=== PATIENT | female | born 1985 | race Caucasian/White ===

== ENCOUNTER 2020-04-15 13:41 | Outpatient (REF) | payer OTHER, SELFPAY ==
--- NOTE | 2020-04-15 13:49 | MM_ITS ---
EXAMINATION: MM DIAGNOSTIC DIGITAL BREAST TOMOSYNTHESIS, BILATERAL US DIAGNOSTIC ULTRASOUND BREAST, LEFT CLINICAL INFORMATION: Palpable fullness anterior left breast. Age 34. Prior reduction mammoplasty July 2018. No known family history of breast cancer. The lifetime risk of breast cancer based on the Tyrer-Cuzick Model is 13%. COMPARISON: Baseline mammography 01/26/2019, ultrasound left breast 01/26/2019. TECHNIQUE: Digital breast tomosynthesis is performed in both the craniocaudal and mediolateral oblique views along with computer-aided detection (CAD). Synthesized 2D images are generated from the tomosynthesis. Additional magnification left CC and magnification left LM views are obtained. Ultrasound left breast is targeted to the 8:00 through 2:00 position. Grayscale imaging and color Doppler are performed without and with harmonics. FINDINGS: There are scattered areas of fibroglandular density (ACR BI-RADS breast composition Category b). Parenchymal pattern is similar to the initial baseline exam. Again, there is some minor scarring consistent with the reduction mammoplasty. Right breast is unchanged. The anterior central 11:00 to 12:00 breast has oval areas of fat necrosis with grouped round foci again seen with internal fatty tissue composition. There is no interval developing density or architectural abnormality. There are new scattered calcifications in this area likely related to the fat necrosis. Calcifications will be reassessed with diagnostic mammography in 6 months to include magnification views. Ultrasound left breast shows oval heterogeneous echogenicity in the region of fat necrosis similar to prior imaging. No interval suspicious change. No edema tracking in soft tissue planes. Results are discussed with the patient at time of visit. The post reduction changes are similar to prior exam. The left breast calcifications are probably benign, sequela from prior surgery. MM/MM tomosynthesis diagnostic BI IMPRESSION: 1. No interval mass or architectural abnormality. 2. Probable benign calcifications in area of fat necrosis anterior left breast. 3. Unremarkable targeted left breast ultrasound. ASSESSMENT: BI-RADS 3: Probably Benign RECOMMENDATION: Diagnostic left mammography in 6 months. This patient's information was entered into a reminder system with a target due date for their next mammogram.
== END 2020-04-15 13:42 | disposition home or self-care (01) ==
LOC: HO.MAMMO 13:41
PROVIDERS: PCP Internal Medicine; Visit Provider Nurse Practitioner Women's Health
DX: N63.22 Unspecified lump in the left breast, upper inner quadrant (principal)
CPT/HCPCS: 76642; 77062; 77066

== ENCOUNTER 2020-10-13 08:49 | Outpatient (REF) | payer OTHER, SELFPAY ==
--- NOTE | ~2020-10-13 | MM_ITS ---
EXAMINATION: MM DIAGNOSTIC DIGITAL BREAST TOMOSYNTHESIS, LEFT CLINICAL INFORMATION: Short interval six-month follow-up probable benign calcifications in area of grouped fat necrosis. Prior reduction mammoplasty July 2018. No known family history breast cancer. TC score 13%. COMPARISON: Mammography: 04/15/2020 (diagnostic, BI-RADS 3), 01/26/2019 (baseline). TECHNIQUE: Digital breast tomosynthesis is performed in both the craniocaudal and mediolateral oblique views along with computer-aided detection (CAD). Synthesized 2D images are generated from the tomosynthesis. Additional magnification CC and magnification ML views are provided. FINDINGS: There are scattered areas of fibroglandular density (ACR BI-RADS breast composition Category b). There are postsurgical changes with scarring and grouped fat necrosis/oil cysts anterior breast consistent with the reduction mammoplasty. There are calcifications in the area of fat necrosis and oil cysts, slightly increased in number and slightly coarser. Calcifications will be reassessed again at time of annual bilateral exam, due in 6 months. The remainder of the left breast is unremarkable. Results are provided to the patient by the technologist. MM/MM tomosynthesis diagnostic LT IMPRESSION: Postsurgical changes with probable benign calcifications associated with fat necrosis and oil cysts. No suspicious change from prior diagnostic exam. ASSESSMENT: BI-RADS 3: Probably Benign RECOMMENDATION: Diagnostic mammography at time of annual bilateral exam, due in 6 months. This patient's information was entered into a reminder system with a target due date for their next mammogram.
== END 2020-10-13 08:50 | disposition home or self-care (01) ==
LOC: HO.MAMMO 08:49
PROVIDERS: PCP Internal Medicine; Visit Provider Nurse Practitioner Women's Health
DX: R92.1 Mammographic calcification found on diagnostic imaging of breast (principal); N64.1 Fat necrosis of breast
CPT/HCPCS: 77061; 77065

== ENCOUNTER 2020-11-16 18:40 | Emergency (ER) | payer OTHER, SELFPAY ==
[2020-11-16 18:44] VITALS: BP 152/84; PULSE 87; RESP 18; TEMP 36.8; O2SAT 98; BMI 43.2
--- NOTE | 2020-11-16 18:54 | ED_ITS ---
HPI - Animal Bite General Chief Complaint: Animal Bite Stated Complaint: dog bite Time Seen by Provider: 11/16/20 18:54 Source: patient Mode of arrival: ambulatory Limitations: no limitations History of Present Illness HPI narrative: 35-year-old female here with dog bite to the face. The patient tells me that she startled her 90 lb dog and he bit her in the face. His rabies vaccines are up-to-date. Related Data Allergies Allergy/AdvReac Type Severity Reaction Status Date / Time No Known Allergies Allergy Unverified 02/21/20 19:30 [No Known Allergies*] Review of Systems Review of Systems: Yes all other systems are reviewed and are negative Constitutional: Constitutional: Reports no additional constitutional complaints and Denies fever(s) Eyes: Eyes: Reports no additional eye complaints and Denies change in vision ENT: Reports system reviewed and no additional complaints, except as documented, Reports lip swelling, Denies epistaxis, Denies nasal congestion, Denies nasal discharge and Denies neck pain Cardiovascular: Cardiovascular: Reports no additional cardiovascular compl aints, Denies chest pain and Denies dyspnea Respiratory: Respiratory: Reports no additional respiratory complaints, Denies cough and Denies dyspnea Gastrointestinal: Gastrointestinal: Reports no additional gastrointestinal complaints and Denies abdominal pain Genitourinary: Genitourinary: Reports no additional female genitourinary complaints Musculoskeletal: Musculoskeletal: Reports no additional musculoskeletal complaints, Denies back pain and Denies neck pain Integumentary/Breasts: Skin/Breast: Reports system reviewed and no additional complaints, except as docu and Denies rash Comments: Dog bite- laceration Neurologic: Reports system reviewed and no additional complaints, except as documented Allergic/Immunologic: Allergic/Immunologic: Reports lip swelling PMFSH Past Medical History Attestation statement: The following information was validated with the patient. Source: old records reviewed and nursing notes reviewed Medical History No known health problems Surgical History Hx of cholecystectomy Social History Social History Advance Directives: No Advance Directives Information Provided: No Patient : No Physical Exam Vital Signs: Vital Signs: Last Vital Signs Temp 98.2 F 11/16/20 18:44 Pulse 87 11/16/20 18:44 Resp 18 11/16/20 18:44 BP 152/84 H 11/16/20 18:44 Pulse Ox 98 11/16/20 18:44 Body Mass Index 43.2 Const: General: cooperative, healthy appearing, comfortable and no acute distress Orientation/consciousness: patient oriented x3 Limitations: no limitations HENMT: Other: Head: Yes normal to inspection Ears: hearing grossly normal bilaterally General nose exam: Normal external nose present Face and sinus: Yes normal facial exam Mouth: Normal oral and palatal mucosa present Throat: Yes posterior oropharynx normal Eyes: General: appearance normal, both eyes and all related structures Neck: Neck: Yes normal visual inspection Chest: Chest palpation & inspection: normal inspection of the chest Resp: Effort & Inspection: normal respiratory effort Cardio: Peripheral pulses: Peripheral pulses 2+ throughout Back/Spine/Pelvis: Thoracic/Lumbar Spine: thoracic and lumbar spine normal to inspection Skin: General skin exam: no rashes or lesions noted Neuro: General: patient oriented x3 and moves all extremities Gait exam (Neuro): Normal gait present Extrem: General: Yes normal to inspection Course Course Course Narrative: Extensive facial lacerations after being bitten by her dog on the upper lips through and through crossing the [place]. Will need plastics repair. Will transfer to tertiary care center for further evaluation.Patient agreeable to this. Verbal consent for transfer. Called and spoke to [facility] ER Dr Marquez who accepted patient. Patient refused ambulance transfer and will drive by car. Her dad is going to bring her. MDM - Animal Bite Medical Records Attestation: I reviewed the patient's medical records. Lab Data Attestation: I reviewed the patient's lab results. Discharge Plan Discharge Clinical Impression: Bite by animal, Dog bite, Complex laceration of face Patient Disposition: [facility] Transfer Details: [facility] Instructions: Animal Bite (ED), Facial Laceration (ED) Additional Instructions: Go direct to [facility] ER
== END 2020-11-16 19:10 | disposition short-term general hospital (02) ==
PROVIDERS: Emergency Provider Internal Medicine; PCP Internal Medicine
DX: S01.551A Open bite of lip, initial encounter (principal); W54.0XXA Bitten by dog, initial encounter; Y93.9 Activity, unspecified; Y92.9 Unspecified place or not applicable; Y99.9 Unspecified external cause status
CPT/HCPCS: 99283; 99285

== ENCOUNTER 2021-04-15 12:20 | Outpatient (REF) | payer OTHER, SELFPAY ==
--- NOTE | ~2021-04-15 | MM_ITS ---
EXAMINATION: MM DIAGNOSTIC DIGITAL BREAST TOMOSYNTHESIS, BILATERAL CLINICAL INFORMATION: Status post breast reduction surgery with left-sided calcifications. The lifetime risk of breast cancer based on the Tyrer-Cuzick Model is 13.3%. COMPARISON: Mammography: 10/13/2020 and 04/15/2020. TECHNIQUE: Digital breast tomosynthesis is performed in both the craniocaudal and mediolateral oblique views along with computer-aided detection (CAD). Synthesized 2D images are generated from the tomosynthesis. Additional spot magnification views of the left breast in craniocaudal and 90 degree mediolateral views performed as well as spot compression view of the right breast in craniocaudal projection. FINDINGS: There are scattered areas of fibroglandular density (ACR BI-RADS breast composition Category b). The questioned density about the lateral aspect of the right breast was not persistent following spot compression view. No new abnormal right breast mass or suspicious grouping of calcification is identified. There is some architectural distortion present from previous surgery most evident about the deep medial aspect. Postsurgical changes seen about the left breast most prominent anteriorly and medially. A few oil cysts are again noted as well as what appear to be dystrophic calcifications. Recommend 1 year diagnostic mammography with magnification views of the right breast. Results are provided to the patient at time of visit by the technologist. MM/MM tomosynthesis diagnostic BI IMPRESSION: Postsurgical change as described. ASSESSMENT: BI-RADS 3: Probably Benign. RECOMMENDATION: Diagnostic mammography at time of next annual exam, due in 12 months. This patient's information was entered into a reminder system with a target due date for their next mammogram.
== END 2021-04-15 12:21 | disposition home or self-care (01) ==
LOC: HO.MAMMO 12:20
PROVIDERS: Visit Provider Internal Medicine
DX: R92.1 Mammographic calcification found on diagnostic imaging of breast (principal)
CPT/HCPCS: 77062; 77066

== ENCOUNTER 2022-04-15 14:59 | Outpatient (REF) | payer OTHER, SELFPAY ==
--- NOTE | ~2022-04-15 | MM_ITS ---
EXAMINATION: MM DIAGNOSTIC DIGITAL BREAST TOMOSYNTHESIS, BILATERAL CLINICAL INFORMATION: Age 36. Prior reduction mammoplasty July,07/26/2018. Follow-up probable benign left-sided calcifications likely related to benign fat necrosis. COMPARISON: Mammography: 04/15/2021, 10/13/2020, 04/15/2020 (BI-RADS 3), 01/26/2019 TECHNIQUE: Digital breast tomosynthesis is performed in both the craniocaudal and mediolateral oblique views along with computer-aided detection (CAD). Synthesized 2D images are generated from the tomosynthesis. Additional views are provided: Left CC, magnification left CC, magnification left ML. FINDINGS: There are scattered areas of fibroglandular density (ACR BI-RADS breast composition Category b). There is minor scarring consistent with the prior reduction mammoplasty. Scattered minor parenchymal asymmetries are stable. No developing density. No interval architectural abnormality. The axilla are unremarkable. Calcifications associated with fat necrosis anterior to mid central left breast under surveillance are now considered to be benign. Results are provided to the patient at time of visit by the technologist. MM/MM tomosynthesis diagnostic BI IMPRESSION: -No mammographic evidence of malignancy. -Left breast calcifications under surveillance are now considered to be benign. ASSESSMENT: BI-RADS 2: Benign RECOMMENDATION: Routine annual mammography screening, beginning age 40, or earlier as clinical risk factors warrant. This patient's information was entered into a reminder system with a target due date for their next mammogram.
== END 2022-04-15 15:00 | disposition home or self-care (01) ==
LOC: HO.MAMMO 14:59
PROVIDERS: Visit Provider Internal Medicine
DX: R92.1 Mammographic calcification found on diagnostic imaging of breast (principal)
CPT/HCPCS: 77062; 77066

== ENCOUNTER 2025-03-19 13:45 | Outpatient (REF) | payer OTHER, SELFPAY ==
[2025-03-20 08:39] LABS: Chlamydia pneumoniae PCR Not Detected (Not Detect.); Coronavirus 229E PCR Not Detected (Not Detect.); Coronavirus HKU1 PCR Not Detected (Not Detect.); Coronavirus NL63 PCR Not Detected (Not Detect.); Coronavirus OC43 PCR Not Detected (Not Detect.); RSV PCR Not Detected (Not Detect.); Rhino/Enterovirus PCR Not Detected (Not Detect.)
[2025-03-20 09:50] LABS: Influenza A H1 PCR Not Detected (Not Detect.); Influenza A H1-2009 PCR Not Detected (Not Detect.); Influenza A H3 PCR Not Detected (Not Detect.); SARS-CoV-2 PCR Not Detected (Not Detect.)
== END 2025-03-19 13:46 | disposition home or self-care (01) ==
LOC: HO.LNP 13:45
PROVIDERS: PCP Internal Medicine; Visit Provider Physician Assistant Medical
DX: J02.9 Acute pharyngitis, unspecified (principal); R05.9 Cough, unspecified; R51.9 Headache, unspecified
CPT/HCPCS: 87633

== ENCOUNTER 2025-03-19 13:45 | Outpatient (AMB) | payer OTHER, SELFPAY ==
[2025-03-19 13:54] VITALS: BP 126/74; PULSE 76; TEMP 36.6; O2SAT 99; BMI 43.3
--- NOTE | 2025-03-19 13:54 | MHC.OFFWIV ---
Intake Vital Signs 03/19/25 13:54 Height 5 ft 5 in Weight 260 lb BMI 43.3 BP 126/74 Blood Pressure Location Lt brachial Position Sitting Pulse 76 Pulse Source Pulse Oximeter Temp 97.9 F Temp Source Oral Pulse Oximetry (%) 99 Oxygen Delivery Method Room Air Intake Visit Reasons: EP-upper respiratory symptoms Allergies No Known Allergies (No Known Allergies*) Allergy (Verified 03/19/25 13:55) Do you need a note to return to daycare/school/sports/work: No HPI HPI Comments History of Present Illness Details History - The patient is a 39-year-old female presenting with symptoms of a respiratory infection. - Symptoms began a week ago, initially affecting the chest and later involving the sinuses. - Reports increased coughing at night, sore throat, and headaches upon waking. - Greenish-yellow nasal discharge and mild facial pressure noted, but no significant earache. - Cough is mostly dry but occasionally productive. - Using Mucinex with acetaminophen and ibuprofen for symptom relief. - COVID-19 test conducted over the weekend was negative. - Attended a music festival on the and , which may have been a potential exposure event. - She denies fever, chills, CP, SOB, abd pain, n/v/d. Physical Exam General: Cooperative, healthy appearing, comfortable and no acute distress Orientation/consciousness: Patient oriented x3 Limitations: No limitations Head: Normal to inspection Ears: Hearing grossly normal bilaterally, external ears normal and TM's normal bilaterally Nose: Normal external nose present, normal nares present. Face and sinus: Sinuses slightly tender to palpation. Mouth: Normal oral and palatal mucosa present and moist mucous membranes noted. Throat: Tonsils normal. Uvula is midline. Posterior oropharynx with erythema and no exudates. Eyes: Appearance normal, both eyes and all related structures Neck: Normal visual inspection, full ROM. No lymphadenopathy noted. Respiratory: Clear to auscultation bilaterally. Normal respiratory effort, able to speak in complete sentences. No respiratory distress, not tachypneic, no tripod positioning and no use of accessory muscles. Cardiovascular: Regular rate and rhythm. Normal S1 and S2. No m/r/g noted. Skin: No rashes or lesions noted Patient was informed and verbally consented to the use of an ambient scribe for clinic note documentation during this visit [facility] Medical History No known health problems Surgical History Hx of cholecystectomy Review of Systems Const All systems reviewed & are unremarkable except as noted in HPI and below Physical Exam Vital Signs: Last Vital Signs Temp 97.9 F 03/19/25 13:54 Pulse 76 03/19/25 13:54 BP 126/74 03/19/25 13:54 Pulse Ox 99 03/19/25 13:54 Oxygen Delivery Method Room Air 03/19/25 13:54 BMI result Body Mass Index 43.3 Assessment & Plan Assessment & Plan (1) URI (upper respiratory infection): Code(s): J06.9 - Acute upper respiratory infection, unspecified Qualifiers: URI type: unspecified URI Qualified Code(s): J06.9 - Acute upper respiratory infection, unspecified Plan Most likely URI vs sinusitis vs covid vs RSV vs flu plan - Conducted a respiratory panel including tests for RSV, flu, and COVID-19. - Prescribed nasal spray for symptomatic relief. - tylenol or motrin as needed for pain or fever. - will send her abx to the pharmacy today - will call with results and if resp panel is negative then she can start the antibiotics - Plan to initiate antibiotics if respiratory panel results are negative. - follow up with PCP Orders: Orders Resp Pathogen Panel - [facility] Today J06.9 - Acute upper respiratory infection, unspecified Medications: New fluticasone propionate 50 mcg/actuation administer into each nostril 1 spray intranasal Q12H 16 grams 0RF amoxicillin-pot clavulanate 875-125 mg 1 tab PO Q12H 14 tabs 0RF Coding Level of Care Code Est Pt Level 3 (08342) Diagnoses Upper respiratory tract infection, unspecified type J06.9 URI type: unspecified URI
--- OUTSIDE RECORDS SUMMARY | 2025-03-19 16:42 | XMS_ITS ---
Author Name [facility] Organization Unknown History of Medication Use Medication Directions Dispensed Refills Start Date End Date Stat us predniSONE (DELTASONE) 20 mg tablet Take 2 tablets (40 mg total) by mouth daily for 5 days. Take with food. 03/14/2024 03/20/2024 active cyclobenzaprine (FLEXERIL) 10 mg tablet Take 1 tablet (10 mg total) by mouth at bedtime for 7 days. 03/07/2024 03/15/2024 active predniSONE (DELTASONE) 50 mg tablet Take 1 tablet (50 mg total) by mouth daily for 7 days. Take with food. 03/07/2024 03/15/2024 active Allergies Allergen Reaction Severity Comment Documented Date Source Statu s LATEX ITCHING 03/14/2024 [facility] active ADHESIVE ITCHING [facility] Problems Problem Status Onset Date Problem Type Date of Resolution Source Thoracic myofascial strain, initial encounter active EncounterDiagnosisAct C T_YALEUC Encounters Encounter Type Encounter Reason Primary Diagnosis Location Date Ambulatory [place] [facility] 04/05/2024 Ambulatory Sprain of thoracic region Sprain of thoracic region [facility] 03/14/2024 Ambulatory [facility] 03/07/20 24 Care Team Organization Name Specialty Phone Email Start Date End [facility] 04/07/2024 08/22/2024 [place] [facility] NO PCP Primary Care 03/26/2024 [facility] 03/26/2024 [facility] 03/07/2024 [facility] 11/06/2022 [facility]
--- OUTSIDE RECORDS SUMMARY | 2025-03-19 16:42 | XMS_ITS | Clinical Summary ---
Author Organization [facility] Address [address] [place] [address] Care Team Providers Care Esthetician Facialist Name Role Phone Unavailable Primary Care Provider Unavailabl e Allergies No known active allergies Medications Medication Sig Dispensed Refills Start Date End Date Status sertraline (ZOLOFT) 100 MG tablet Take 100 mg by mouth daily. 0 Active etonogestrel-ethiny l estradiol (NUVARING) 0.12-0.015 MG/24HR vaginal ring Place 1 each vaginally every 28 days. Insert vaginally and leave in place for 3 consecutive weeks, then remove for 1 week. 0 Active ondansetron (ZOFRAN) 4 MG tablet Take 1 tablet (4 mg total) by mouth every 8 (eight) hours as needed for nausea. 12 tablet 0 04/25/2016 Active metoclopramide (REGLAN) tablet 10 mg Take 1 tablet (10 mg total) by mouth every 6 (six) hours as needed (For nausea/vomiting or headaches). 20 tablet 0 04/26/2016 Active oxyCODONE-acetamino phen (PERCOCET) 5-325 MG per tablet Take 1 tablet by mouth every 4 (four) hours as needed. 20 tablet 0 06/03/2016 Active polyethylene glycol (MIRALAX) packet Take 17 g by mouth daily. 14 each 0 06/03/2016 Active Family History Medical History Relation Name Comments Gallbladder disease Neg Hx Social History Tobacco Use Types Packs/Day Years Used Date Smoking Tobacco: Never Alcohol Use Standard Drinks/Week Comments No 0 (1 standard drink = 0.6 oz pur e alcohol) Sex and Gender Information Value Date Recorded Sex Assigned at Not on file Gender Identity Not on file Sexual Orientation Not on file Last Filed Vital Signs Vital Sign Reading Time Taken Comments Blood Pressure 126/71 06/03/2016 4:25 PM EST Pulse 97 06/03/2016 4:25 PM EST Temperature 36.2 C (97.2 F) 06/03/2016 4:25 PM EST Respiratory Rate 18 06/03/2016 4:25 PM EST Oxygen Saturation 95% 06/03/2016 4:25 PM EST Inhaled Oxygen Concentration - - Weight 99.8 kg (220 lb) 05/24/2016 11:39 AM EST Height 165.1 cm (5' 5 ) 05/24/2016 11:39 AM EST Body Mass Index 36.61 05/24/2016 11:39 AM EST Plan of Treatment Health Maintenance Due Date Last Done Comments Hepatitis B Vaccines (1 of 3 - 3-dose series) 1983 Hepatitis C Screening 1983 COVID-19 Vaccine (#1) 02/21/1984 Depression Screening 1995 Preventative Health Evaluation 08/20/2001 DTap / Tdap / Td (1 - Tdap) 08/20/2002 Cervical Cancer Screening (P ap Smear) 08/20/2004 Influenza Vaccine (#1) 2025 Pneumococcal Vaccine Aged Out No long er eligible based on patient's age to complete this topic RSV Ped < 20 months Aged Out No longe r eligible based on patient's age to complete this topic Advance Directives For more information, please contact: [phone] Documents on File Type Date Recorded 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
--- OUTSIDE RECORDS SUMMARY | 2025-03-19 16:42 | XMS_ITS | Clinical Summary ---
Author Organization [address] Address [address] [place] [id number] Care Team Providers Care Box Toe Cutter Name Role Phone No, Pcp (Do Not Change Name) Primary Care Provid er Unavailable Allergies Active Allergy Reactions Criticality Noted Date Comments Adhesive Itching Low 03/14/2024 Latex Itching Low 03/14/2024 Medications No known medications Active Problems Problem Noted Date Diagnosed Date Muscle strain of left upper back, initial encoun ter 03/14/2024 Social History Tobacco Use Types Packs/Day Years Used Date Smoking Tobacco: Never Smokeless Tobacco: Never Tobacco Cessation:Counseling Given: Not Answered Alcohol Use Standard Drinks/Week Comments Yes 0 (1 standard drink = 0.6 oz pur e alcohol) Comments Unknown Sex and Gender Information Value Date Recorded Sex Assigned at Not on file Legal Sex Female 8:15 AM EDT Gender Identity Not on file Sexual Orientation Not on file Last Filed Vital Signs Vital Sign Reading Time Taken Comments Blood Pressure 137/86 03/14/2024 3:21 PM EDT Pulse 88 03/14/2024 3:21 PM EDT Temperature 36.6 C (97.8 F) 03/14/2024 3:21 PM EDT Respiratory Rate 16 03/14/2024 3:21 PM EDT Oxygen Saturation 100% 03/14/2024 3:21 PM EDT Inhaled Oxygen Concentration - - Weight 122.5 kg (270 lb) 03/14/2024 3:21 PM EDT Height 165.1 cm (5' 5 ) 03/14/2024 3:21 PM EDT Body Mass Index 44.93 03/14/2024 3:21 PM EDT Plan of Treatment Health Maintenance Due Date Last Done Comments HIV screening 08/20/1996 Hepatitis C screening 08/20/2001 Tetanus adult (Td q 10,TDAP once) 2003 Cervical cancer screening 08/20/2004 Breast cancer screening 2023 Lipid disorder screening 2023 Influenza vaccine 01/04/2025 Covid-19 vaccine series ( - 2024- season) 2025 05/23/2020 RSV Immunization (1 - 1-dose 75+ series) 08/20/2058 Meningococcal B Vaccine Aged Out No l onger eligible based on patient's age to complete this topic Meningococcal Vaccine Aged Out No gabrielle grant eligible based on patient's age to complete this topic Pneumococcal Vaccine (2 - 49 years) Aged Out No longer eligible b ased on patient's age to complete this topic Insurance BS BS Care Teams Box Toe Cutter Relationship Specialty Start Date End Date No, Pcp (Do Not Change Name) PCP - General 03/07/24
--- OUTSIDE RECORDS SUMMARY | 2025-03-19 16:42 | XMS_ITS | Patient Health Record ---
Author Organization [facility] Address [address] [place] [address] Care Team Providers Care End Packer Name Role Phone Mary Chavez MD Primary Care Provider Jenn Castañeda Unavailable [phone] Allergies Allergen (clinical drug ingredient) Drug/Non Drug Allergy documented on EMR Reaction Allergy Type Onset Date Status Adhesive red skin,minpr itching Allergy Active Latex Latex red skin, minor itching Allergy Active Reason For Referral No Information Medications Medication SIG (Take, Route, Frequency, Duration) Notes Start Date End Date Status Sertraline HCl 100 MG 1 tablet Orally On ce a day; Duration: 30 day(s) Active Etonogestrel-Ethinyl Estradiol 0.12-0.015 MG/24HR [address] for 3 weeks, remove, and replace with a new ring after 7 day break Vaginal; Duration: 28 day(s) Nuva ring Active Immunizations Vaccine Route Administration Date Status Comme nts COVID-19 Pfizer BioNTech Vaccine Unknown 05/23/2020 Administered Second Dose: Social History Tobacco Use: Social History Observation Description Date Details (start date - stop date) Never Smoker NA - NA Tobacco Use/Smoking Question Answer Notes Are you a: nonsmoker Alcohol Screen Question Answer Notes Did you have a drink containing alcohol in the p ast year? Yes Points 0 Interpretation Negative Tobacco use other than smoking: Question Answer Notes Are you an other tobacco user? No Plan Of Treatment Pending Test Test Name Order Date X ray : Foot, right 3V 12/05/2020 [id number] TENDON SHEATH/LIGAMENT 0 12/26/2020 Insurance Providers Payer Name Payer Address Payer Phone Subscriber Number Group Number Insured Name Patient Relationship to Insured Coverage Start Date Coverage End Date Blue Benefits [address] [address] [place] [address] [id number] Martina Mcneill Self - patient is the insured Medical (General) History Medical History History ICD Code Anxiety Depression Gall bladder problems Lyme disease chronic sinusitis Chicken pox Surgical History Surgery Date(Month/Year) gall bladder 06/03/16 breast reduction 08/03/18
--- OUTSIDE RECORDS SUMMARY | 2025-03-19 16:42 | XMS_ITS | Clinical Summary ---
Author Organization [facility] Address [address] [place] [address] Care Team Providers Care Venetian Blind Installer Name Role Phone Pcp, No Primary Care Provider Unavailabl e Allergies No known active allergies Medications sertraline (ZOLOFT) 100 MG tablet TAKE 2 TABLET BY MOUTH ONCE A DAY 02/24/20 20 Active methylphenidat e (RITALIN) 10 MG tablet TAKE 1 TABLET BY MOUTH ONCE A DAY TAKE WITH METHYLPHENIDATE 5 MG 05/07/20 20 Active methylphenidat e (RITALIN) 5 MG tablet TAKE 1 TABLET BY MOUTH ONCE A DAY TAKE WITH METHYLPHENIDATE 10MG 05/07/20 20 Active methylphenidat e (CONCERTA) 54 MG CR tablet TAKE 1 TABLET BY MOUTH ONCE A DAY TAKE WITH METHYLPHENIDATE 18MG 05/07/20 20 Active methylphenidat e (CONCERTA) 18 MG CR tablet TAKE 1 TABLET BY MOUTH ONCE A DAY TAKE WITH METHYLPHENIDATE 54 MG 05/07/20 20 Active etonogestrel-e thinyl estradiol (NUVARING) 0.12-0.015 MG/24HR vaginal ring See Admin Instructions. 04/15/20 20 Active Active Problems No known active problems Family History Medical History Relation Name Comments Renal Disease Mother Renal cell car cinoma Relation Name Status Comments Mother Social History Tobacco Use Types Packs/Day Years Used Date Smoking Tobacco: Never Smokeless Tobacco: Never Alcohol Use Standard Drinks/Week Comments Yes 0 (1 standard drink = 0.6 oz pur e alcohol) AUDIT-C Answer Date Recorded Q1: How often do you have a drink containing alc ohol? Monthly or less 05/27/2020 Q2: How many drinks containi ng alcohol do you have on a typical day when you are drinking? Not asked 05/27/2020 Q3: How often do you have si x or more drinks on one occasion? Not asked 05/27/2020 Comments No Sex and Gender Information Value Date Recorded Sex Assigned at Female 04/03/2024 11:05 AM EDT Legal Sex Female 12:20 PM EST Gender Identity Female 04/03/2024 11:05 AM EDT Sexual Orientation Heterosexual (straight) 04/03 11:05 AM EDT Last Filed Vital Signs Vital Sign Reading Time Taken Comments Blood Pressure 154/81 12/04/2020 3:53 PM EDT Pulse 79 12/04/2020 3:53 PM EDT Temperature - - Respiratory Rate - - Oxygen Saturation 100% 12/04/2020 3:53 PM EDT Inhaled Oxygen Concentration - - Weight 118 kg (260 lb) 12/04/2020 3:53 PM EDT Height 165.1 cm (5' 5 ) 12/04/2020 3:53 PM EDT Body Mass Index 43.27 12/04/2020 3:53 PM EDT Plan of Treatment Health Maintenance Due Date Last Done Comments Hepatitis C Virus Screening 1983 HIV Screening 08/20/1996 DTaP/Tdap/Td Vaccines (1 - Tdap) 08/20/2002 Hepatitis B Vaccines (1 of 3 - 19+ 3-dose series) 08/20/2002 Pap Smear (Ages 21-65) 08/20/2004 Mammogram 2023 10/13/2020, 08/13/2020, 04/15/2020 Influenza Vaccine 01/04/2025 02/28/2024 COVID-19 Vaccine (1 - 2023-2 5 season) 2025 HPV Vaccines (No Doses Required) Completed Pneumococcal Vaccine: Pediatric (0-5 Years) and At-Risk Patients (6 to 49 Years) Aged Out No longer eligible b ased on patient's age to complete this topic Procedures Procedure Name Priority Date/Time Associated Diagnosis Comments IMAGING BREAST/BX/MAMMO Routine 10/13/2020 from Last 3 Months or Most Recently Relevant to Health Maintenance Results * IMAGING BREAST/BX/MAMMO (10/13/2020) Anatomical Region Laterality Modality Other us Generic Provider IMG LEGACY PROCEDURES Final Res ult from Last 3 Months or Most Recently Relevant to Health Maintenance Insurance [facility] - EMPLOYEE PLAN POWERED BY [employer] Care Teams Venetian Blind Installer Relationship Specialty Start Date End Date Pcp, No PCP - General 03/26/24
--- OUTSIDE RECORDS SUMMARY | 2025-03-19 16:42 | XMS_ITS | Encounter Summary ---
Author Organization [facility] Address [address] [place] [address] Phone Care Team Providers Care Training Program Assistant Name Role Phone No, Pcp (Do Not Change Name) Primary Care Provid er Unavailable Reason for Visit * Reason Onset Date Comments Referral 03/14/2024 Encounter Details Date Type Department Care Team (Late st Contact Info) Description 03/14/2024 Telephone [facility] [place] [address] [place] [address] Norris Rubalcava PA [address] [place] [id number] Referral Social History Tobacco Use Types Packs/Day Years Used Date Smoking Tobacco: Never Smokeless Tobacco: Never Alcohol Use Standard Drinks/Week Comments Yes 0 (1 standard drink = 0.6 oz pur e alcohol) Comments Unknown Sex and Gender Information Value Date Recorded Sex Assigned at Not on file Legal Sex Female 8:15 AM EDT Gender Identity Not on file Sexual Orientation Not on file documented as of this encounter Miscellaneous Notes * Telephone Encounter - Dangelo Blanchard - 03/15/2024 2:34 PM EDT Patient picked up referral * Telephone Encounter - Norris Rubalcava PA - 03/14/2024 6:18 PM EDT Referrals in chart. * Telephone Encounter - Zuleyka Valiente - 03/14/2024 5:02 PM EDT Pt called and said they never received referral for PT or Orthopedics. I checked pt's chart and didnot see anything in there for a referral. Patient would like this printed and would like to pick itup tomorrow. documented in this encounter Plan of Treatment Not on file documented as of this encounter Visit Diagnoses Not on filedocumented in this encounter Care Teams Training Program Assistant Relationship Specialty Start Date End Date No, Pcp (Do Not Change Name) PCP - General 03/07/24 documented as of this encounter
== END 2025-03-19 15:22 | disposition home or self-care (01) ==
PROVIDERS: PCP Internal Medicine; Visit Provider Physician Assistant Medical
DX: J06.9 Acute upper respiratory infection, unspecified (principal)